=== PATIENT | male | born 1965 | race Hispanic/Latino ===

== ENCOUNTER 2018-01-30 13:13 | Emergency (ER) | payer BC, OTHER ==
[2018-01-30 13:19] VITALS: TEMP 98.2; O2SAT 98
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
[2018-01-30 15:56] VITALS: BP 157/94; PULSE 57; RESP 18
== END 2018-01-30 15:45 | disposition home or self-care (01) ==
LOC: H.ER 13:13
DX: M54.2 Cervicalgia (principal); E11.9 Type 2 diabetes mellitus without complications; Z79.899 Other long term (current) drug therapy; I10 Essential (primary) hypertension; V43.62XA Car passenger injured in collision with other type car in traffic accident, initial encounter; Y92.410 Unspecified street and highway as the place of occurrence of the external cause
CPT/HCPCS: 96372; 99285; J1885